=== PATIENT | female | born 1935 | race Caucasian/White ===

== ENCOUNTER 2017-09-12 20:05 | Emergency (ER) | payer MEDICARE ==
--- NOTE | 2017-09-12 20:52 | Emergency Department Record ---
History of Present Illness - General Chief Complaint: Overdose Stated Complaint: TOOK TOO MUCH INSULIN BY MISTAKE Time Seen by Provider: 09/12/17 20:48 Source: Patient Mode of Arrival: Ambulatory Limitations: No limitations - History of Present Illness Initial Comments: 82 yo female presents to ED for evaluation after accidentally taking 36 unites of her Humalog instead of her Lantus this evening. Patient reports that she was concerned about hypoglycemia as she only takes about 5-6 units of Humalog at night. Patient denies dizziness, vertigo, or lightheadedness currently. Accu check on arrival was 120. Complaint: Accidental overdose Onset/Timin -: Hour(s) - Danika Coma Scale Eye Response: (4) Open spontaneously Motor Response: (6) Obeys commands Verbal Response: (5) Oriented Wing Total: 15 - Detail Intent: Other Context: Accidental Overdose: Medication error Treatments Prior to Arrival: None - Related Data Home Medications Medication Instructions Recorded Confirmed Last Taken Carvedilol 12.5 mg PO DAILY 09/12/17 09/12/17 Unknown Cholecalciferol (Vitamin D3) 2,000 unit PO DAILY 09/12/17 09/12/17 Unknown [Vitamin D3] Cyanocobalamin (Vitamin B-12) 1,000 mg PO DAILY 09/12/17 09/12/17 Unknown [Vitamin B-12] Furosemide [Lasix] 40 mg PO DAILY 09/12/17 09/12/17 Unknown Losartan Potassium 100 mg PO DAILY 09/12/17 09/12/17 Unknown Allergies Allergy/AdvReac Type Severity Reaction Status Date / Time No Known Drug Allergies Allergy Verified 09/21/15 00:35 Travel Screening - Travel/Exposure Within Last 30 Days Have you traveled within the last 30 days?: No - Travel/Exposure Within Last Year Have you traveled outside the [place] in the last year?: No - Additonal Travel Details Have you been exposed to anyone with a communicable illness?: No - Travel Symptoms Symptom Screening: None Review of Systems Constitutional: Denies: Chills, Fever, Malaise, Night sweats Eyes: Denies: Eye discharge, Eye pain ENT: Denies: Congestion, Ear pain, Epistaxis Respiratory: Denies: Cough, Dyspnea Cardiovascular: Denies: Chest pain, Dyspnea on exertion Endocrine: Denies: Fatigue, Heat or cold intolerance Gastrointestinal: Denies: Abdominal pain, Nausea, Vomiting Genitourinary: Denies: Incontinence, Retention Musculoskeletal: Denies: Arthralgia, Back pain, Gout, Joint swelling Skin: Denies: Bruising, Change in color Neurological: Denies: Abnormal gait, Confusion, Headache, Seizure Psychiatric: Denies: Anxiety Hematological/Lymphatic: Denies: Anemia, Blood Clots Past Medical History - SOCIAL HISTORY Smoking Status: Never smoker Alcohol Use: None Drug Use: None - RESPIRATORY Hx Respiratory Disorders: Yes Comment:: nodule on lung - CARDIOVASCULAR Hx Cardio Disorders: Yes Hx Heart Attack: Yes Hx Hypertension: Yes - NEURO Hx Neuro Disorders: No - GI Hx GI Disorders: No - Hx Genitourinary Disorders: Yes Hx Renal Disease: Yes (CKD) - ENDOCRINE Hx Endocrine Disorders: Yes Hx Diabetes: Yes (DM 2) - MUSCULOSKELETAL Hx Musculoskeletal Disorders: No - PSYCH Hx Psych Problems: No - HEMATOLOGY/ONCOLOGY Hx Hematology/Oncology Disorders: No Family Medical History Any Significant Family History?: Yes Hx Cancer: Brother/Sister Physical Exam - General General Appearance: Alert, Oriented x3, Cooperative, No acute distress, Other ( eating peanut butter sandwich on examination) Limitations: No limitations - Head Head exam: Atraumatic, Normocephalic, Normal inspection Head exam detail: negative: Abrasion, Contusion, Lal's sign, General tenderness, Hematoma, Laceration - Eye Eye exam: Normal appearance. negative: Conjunctival injection, Periorbital swelling, Periorbital tenderness, Scleral icterus - ENT Ear exam: negative: Auricular hematoma, Auricular trauma Nasal Exam: negative: Active bleeding, Discharge, Dried blood, Foreign body Mouth exam: negative: Drooling, Laceration, Muffled voice, Tongue elevation - Neck Neck exam: Normal inspection. negative: Meningismus, Tenderness - Respiratory Respiratory exam: Normal lung sounds bilaterally. negative: Rales, Respiratory distress, Rhonchi, Stridor - Cardiovascular Cardiovascular Exam: Regular rate, Normal rhythm, Normal heart sounds - GI/Abdominal GI/Abdominal exam: Soft. negative: Rebound, Rigid, Tenderness - Rectal Rectal exam: Deferred - exam: Deferred - Extremities Extremities exam: negative: Calf tenderness, Pedal edema, Tenderness - Back Back exam: Denies: CVA tenderness (R), CVA tenderness (L) - Neurological Neurological exam: Alert, Normal gait, Oriented X3 - Psychiatric Psychiatric exam: Normal affect, Normal mood - Skin Skin exam: Normal color. negative: Abrasion Type of lesion: negative: abrasion Course Vital Signs 09/12/17 20:19 Temperature 97.6 F Pulse Rate [ 73 Pulse Ox Probe] Respiratory 24 Rate Blood Pressure 178/90 [Left Arm] Pulse Ox 97 - Reevaluation(s) Reevaluation #1: 09/12/17 20:51 Patient seen and examined, half-life for Humalog is approximately 1 hour. Will recheck an accu check at 21:30 and 23:00, if the patient maintains her glucose for 3 half-lives of the medication, she will be stable for discharge at that time. Patient and her family member agree with plan as discussed. Reevaluation #2: 09/12/17 21:42 Repeat accu check 81. Patient given more to eat. Will recheck in 80 minutes unless symptomatic. Reevaluation #3: 09/12/17 23:02 Repeat accu check 71. Patient reports that she is feeling well at this time and appears stable for discharge at this time with her . Medical Decision Making - Lab Data Lab Results 09/12/17 Range/Units 20:20 POC Glucose 120 H (70-110) mg/dL Disposition Disposition: Discharge Clinical Impression: Insulin reaction Qualifiers: Encounter type: initial encounter Qualified Code(s): T38.3X5A - Adverse effect of insulin and oral hypoglycemic [antidiabetic] drugs, initial encounter Disposition: Home, Self-Care Condition: (2) Stable Instructions: Hypoglycemia in a Person with Diabetes (ED) Additional Instructions: Return to ED if your symptoms worsen or if you have any concerns. Follow-up with your family doctor in 3-5 days as directed. Forms: Patient Portal Access Time of Disposition: 23:03 Quality - Quality Measures Quality Measures: N/A - Blood Pressure Screening Does Patient Have Any of the Following: No Blood Pressure Classification: Hypertensive Reading Systolic Measurement: 144 Diastolic Measurement: 76 Screening for High Blood Pressure: < First Hypertensive BP, F/U Documented > [ [id number]] First Hypertensive Follow-up Interventions: Referral to alternative/primary care provider.
== END 2017-09-12 23:09 | disposition home or self-care (01) ==
LOC: ER 20:05
DX: T38.3X1A Poisoning by insulin and oral hypoglycemic [antidiabetic] drugs, accidental (unintentional), initial encounter (principal); I12.0 Hypertensive chronic kidney disease with stage 5 chronic kidney disease or end stage renal disease; E11.22 Type 2 diabetes mellitus with diabetic chronic kidney disease; N18.6 End stage renal disease; I25.2 Old myocardial infarction
CPT/HCPCS: 36416; 82948; 99283

== ENCOUNTER 2019-02-06 16:31 | Emergency (ER) | payer MEDICARE ==
--- NOTE | 2019-02-06 16:50 | Emergency Department Record ---
History of Present Illness - General Chief Complaint: Chest Pain Stated Complaint: HEART PAIN Source: Patient, RN notes reviewed Mode of Arrival: Ambulatory - History of Present Illness Initial Comments: flutter in chest on and off today and no chest pain now and she was in [facility] 2 weeks ago for CHF and atial fib and not is on aspirin an elliquis. Today her weight is up 5 pounds and her legs are swollen and no active chest pain now. Currently she is in NSR EKG no acute changes with some artifact. Primary Dr Serna and goes to one team. MD Complaint: Chest pain Onset/Timin -: Hour(s) Pain Location: Other (fluttering in his chest) Severity: Mild Quality: Other (no symptoms now) Consistency: Now resolved - Related Data Home Medications Medication Instructions Recorded Confirmed Last Taken Apixaban [Eliquis] 5 mg PO DAILY 02/06/19 02/06/19 02/06/19 Previous Rx's Medication Instructions Recorded Furosemide [Lasix] 40 mg PO BID #60 tablet 02/06/19 Allergies Allergy/AdvReac Type Severity Reaction Status Date / Time No Known Drug Allergies Allergy Verified 02/06/19 16:36 Review of Systems Reviewed: No additional complaints except as noted below Constitutional: Reports: As per HPI. Denies: Chills, Fever, Malaise, Night sweats, Weakness, Weight change Eyes: Reports: As per HPI. Denies: Eye discharge, Eye pain, Photophobia, Vision change ENT: Reports: As per HPI. Denies: Congestion, Dental pain, Ear pain, Epistaxis , Hearing loss, Throat pain Respiratory: Reports: As per HPI, Dyspnea. Denies: Cough, Hemoptysis, Stridor, Wheezes Cardiovascular: Reports: As per HPI, Chest pain, Palpitations. Denies: Arrhythmia, Dyspnea on exertion, Edema, Murmurs, Orthopnea, Paroxysmal nocturnal dyspnea, Rheumatic Fever, Syncope Endocrine: Reports: As per HPI. Denies: Fatigue, Heat or cold intolerance, Polydipsia, Polyuria Gastrointestinal: Reports: As per HPI. Denies: Abdominal pain, Constipation, Diarrhea, Hematemesis, Hematochezia, Melena, Nausea, Vomiting Genitourinary: Reports: As per HPI. Denies: Abnormal menses, Discharge, Dyspareunia, Dysuria, Frequency, Hematuria, Incontinence, Retention, Urgency Musculoskeletal: Reports: As per HPI. Denies: Arthralgia, Back pain, Gout, Joint swelling, Myalgia, Neck pain Skin: Reports: As per HPI. Denies: Bruising, Change in color, Change in hair/ nails, Lesions, Pruritus, Rash Neurological: Reports: As per HPI. Denies: Abnormal gait, Confusion, Headache, Numbness, Paresthesias, Seizure, Tingling, Tremors, Vertigo, Weakness Psychiatric: Reports: As per HPI. Denies: Anxiety, Auditory hallucinations, Depression, Homicidal thoughts, Suicidal thoughts, Visual hallucinations Hematological/Lymphatic: Reports: As per HPI. Denies: Anemia, Blood Clots, Easy bleeding, Easy bruising, Swollen glands Past Medical History - SOCIAL HISTORY Smoking Status: Never smoker Drug Use: None - RESPIRATORY Hx Respiratory Disorders: Yes Comment:: nodule on lung - CARDIOVASCULAR Hx Cardio Disorders: Yes Hx Heart Attack: Yes Hx Hypertension: Yes - NEURO Hx Neuro Disorders: No - GI Hx GI Disorders: No - Hx Genitourinary Disorders: Yes Hx Renal Disease: Yes (CKD) - ENDOCRINE Hx Endocrine Disorders: Yes Hx Diabetes: Yes (DM 2) - MUSCULOSKELETAL Hx Musculoskeletal Disorders: No - PSYCH Hx Psych Problems: No - HEMATOLOGY/ONCOLOGY Hx Hematology/Oncology Disorders: No Family Medical History Hx Cancer: Brother/Sister Physical Exam - General General Appearance: Alert, Oriented x3, Cooperative, No acute distress - Head Head exam: Normal inspection - Eye Eye exam: Normal appearance, PERRL Pupils: Normal accommodation - ENT ENT exam: Normal exam, Mucous membranes moist, Normal external ear exam, Normal orophraynx, TM's normal bilaterally Ear exam: Normal external inspection. negative: External canal tenderness Nasal Exam: Normal inspection. negative: Discharge, Sinus tenderness Mouth exam: Normal external inspection, Tongue normal Teeth exam: Normal inspection. negative: Dental caries Throat exam: Normal inspection. negative: Tonsillar erythema, Tonsillar exudate - Neck Neck exam: Normal inspection, Full ROM. negative: Tenderness - Respiratory Respiratory exam: Normal lung sounds bilaterally. negative: Respiratory distress - Cardiovascular Cardiovascular Exam: Regular rate, Normal rhythm, Normal heart sounds - GI/Abdominal GI/Abdominal exam: Soft, Normal bowel sounds. negative: Tenderness - Rectal Rectal exam: Deferred - exam: Deferred - Extremities Extremities exam: Normal inspection, Full ROM, Normal capillary refill. negative: Tenderness - Back Back exam: Reports: Normal inspection, Full ROM. Denies: Muscle spasm, Rash noted, Tenderness - Neurological Neurological exam: Alert, Normal gait, Oriented X3, Reflexes normal - Psychiatric Psychiatric exam: Normal affect, Normal mood - Skin Skin exam: Dry, Intact, Normal color, Warm Course - Reevaluation(s) Reevaluation #1: reviewed records from [facility] and she had Bronchitis with severe mucous pluggging and she had to have a bronchoscopy to improve her oxygen saturation and she went home with oxygen and when she came in she told me she is only wearing her oxygen at night. The visiting nurse told her to go to the ED today. [facility] diagnosised her heart failure as distolic heart failure 02/06/19 18:08 02/06/19 18:17 Reevaluation #2: swecond troponin t done at 2 hours 02/06/19 18:50 Medical Decision Making - Data Complexity MDM Data: Labs Ordered and/or Reviewed (trop t negative, bun 22 creat 1.4 ), X- Ray Ordered and/or Reviewed (no acute changes read by me), EKG Ordered and/or Reviewed (nsr, no acute changes) - Lab Data Result diagrams: 02/06/19 17:15 02/06/19 17:15 Disposition Clinical Impression: Heart palpitations, History of atrial fibrillation CHF (congestive heart failure) Qualifiers: Heart failure type: systolic Heart failure chronicity: acute Qualified Code(s) : I50.21 - Acute systolic (congestive) heart failure Disposition: Home, Self-Care Condition: (1) Good Instructions: Heart Failure (ED), A-fib (Atrial Fibrillation) (ED) Additional Instructions: increase lasix to 40 mg twice a day follow up with Dr. Serna in 1-2 days elevate feet and wear knee high support socks Prescriptions: Furosemide [Lasix] 40 mg PO BID #60 tablet Forms: Patient Portal Access Time of Disposition: 19:01 Quality - Quality Measures Quality Measures: N/A - Blood Pressure Screening Does Patient Have Any of the Following: No, Active Dx of HTN Blood Pressure Classification: Hypertensive Reading Systolic Measurement: 147 Diastolic Measurement: 70 Screening for High Blood Pressure: Patient Exclusion, Hx of HTN [[id number]]
[2019-02-06] MEDS ORDERED: ASPIRIN 81 MG CHEWABLE TABLET PO ONE (16:56)
[2019-02-06] MEDS ORDERED: FUROSEMIDE IV 40MG/4ML VIAL IVP ONE (16:58)
[2019-02-06 17:26] LABS: BASO % 0.3 % (0-6); EOS % 4.8 % (0-6); GRAN % 64.5 % (47-80); HEMATOCRIT 31.7 % (35.0-47.0); HEMOGLOBIN 9.6 gm/dl (11.6-16.0); LYMPH % 21.3 % (16-45); MEAN CELL VOLUME 91.6 fl (81-97); MEAN CORPUSCULAR HEMOGLOBIN 27.7 pg (27-33); MEAN CORPUSCULAR HGB CONC 30.3 g/dl (32-36); MONO % 9.1 % (0-9); PLATELET COUNT 182 K/uL (130-400); RED BLOOD COUNT 3.46 M/uL (3.80-5.40); RED CELL DISTRIBUTION WIDTH 17.1 % (11.5-14.5); WHITE BLOOD COUNT W/O DIFF 7.2 K/uL (4.2-12.2)
[2019-02-06 17:32] LABS: BLOOD UREA NITROGEN 22 mg/dL (8-23); CREATININE 1.4 mg/dL (0.5-0.9); EST GLOMERULAR FILTRATION RATE 38 mL/min
[2019-02-06 17:35] LABS: GLUCOSE,RANDOM 130 mg/dL (74-109)
== END 2019-02-06 19:16 | disposition home or self-care (01) ==
LOC: ER 16:31
DX: I50.21 Acute systolic (congestive) heart failure (principal); R00.2 Palpitations; I13.0 Hypertensive heart and chronic kidney disease with heart failure and stage 1 through stage 4 chronic kidney disease, or unspecified chronic kidney disease; E11.22 Type 2 diabetes mellitus with diabetic chronic kidney disease; N18.9 Chronic kidney disease, unspecified; Z79.4 Long term (current) use of insulin; I25.2 Old myocardial infarction
CPT/HCPCS: 71046; 80048; 84484; 85025; 85730; 93005; 93010; 96374; 99284; J1940